=== PATIENT | male | born 1950 | race African-American/Black ===

== ENCOUNTER → 2017-04-03 | Outpatient (CLI) | payer MEDICARE ==
--- NOTE | ~2017-04-03 | CR184 ---
[facility] A Service of [facility] & [facility] RADIOLOGY TEXT RESULTS PATIENT: LUI DIGGS LOCATION: [facility] : 52 UNIT #: [id number] AGE: [address]: EMMA ESPINOZA MD SEX: M ORDER DR: [id number] [facility] [address] [place], [place] [address] [id number] O MR#: [id number] Acc #: [id number] NAME: LUI DIGGS : 1950 SEX: M STUDY DATE/TIME: 04/03/2017 14:21 UNIT: [facility] ROOM: STUDY DESCRIPTION: CR Lumbar Spine Min 4 Views Attending Physician: Emma Espinoza M.D. Referring Physician: Emma Espinoza M.D. Ordering Physician: Emma Espinoza M.D. Primary Care Physician: Emma Espinoza M.D. MEDICAL IMAGING REPORT This report is preliminary unless electronic signature is present EXAM Lumbar spine 5 views 04/03/2017 HISTORY Low back pain for 1 year. No known injury. FINDINGS AP and lateral projections of the lumbar segment show good mineralization of both anterior and posterior elements. They are all anatomically normal without indication of fracture, dislocation, or malignant change of a sclerotic or lytic type. There is no congenital defect noted. The sacroiliac joints are normal. IMPRESSION Normal lumbar spine. Dictated by... Gurpreet Hussein M.D. THIS IS AN ELECTRONICALLY VERIFIED REPORT Gurpreet Hussein M.D. at 04/05/2017 7:46 AM CARLITOS/keturah TD: 04/04/2017 13:41 JOB #: [id number] MEDICAL IMAGING REPORT Page 1 of 1 COPY
== END | disposition home or self-care (01) ==
LOC: CRAD 13:20
DX: M54.5 Low back pain (principal)
CPT/HCPCS: 72110

== ENCOUNTER → 2017-05-14 | Outpatient (CLI) | payer MEDICARE ==
--- NOTE | ~2017-05-14 | CR61 ---
[facility] A Service of [facility] & [facility] RADIOLOGY TEXT RESULTS PATIENT: LUI DIGGS LOCATION: [facility] : 52 UNIT #: [id number] AGE: [address]: EMMA ESPINOZA MD SEX: M ORDER DR: [id number] [facility] [address] [place], [place] [address] [id number] O MR#: [id number] Acc #: [id number] NAME: LUI DIGGS : 1950 SEX: M STUDY DATE/TIME: 05/14/2017 11:41 UNIT: [facility] ROOM: STUDY DESCRIPTION: CR Cervical Spine Min 5 Views Attending Physician: Emma Espinoza M.D. Referring Physician: Emma Espinoza M.D. Ordering Physician: Emma Espinoza M.D. Primary Care Physician: Emma Espinoza M.D. MEDICAL IMAGING REPORT This report is preliminary unless electronic signature is present EXAM Cervical spine 5 views 05/14/2017 HISTORY Neck pain for 2 years. No known injury. Right upper extremity numbness and tingling. FINDINGS Five views of the cervical spine demonstrate no fracture. There is straightening of the cervical spine with loss of the normal lordotic curve. Anterior fusion with surgical plate and screws is seen from C3-C6. There is moderate disc space narrowing at C6-7. Anterior and posterior osteophytes are seen at C6 and C7. There is degenerative change involving articular facets. IMPRESSION Degenerative and postsurgical changes in the cervical spine. No acute abnormality. Dictated by... Gurpreet Hussein M.D. THIS IS AN ELECTRONICALLY VERIFIED REPORT Gurpreet Hussein M.D. at 05/16/2017 9:23 AM KRT/to TD: 05/15/2017 11:41 JOB #: [id number] MEDICAL IMAGING REPORT Page 1 of 1 COPY
== END | disposition home or self-care (01) ==
LOC: CRAD 11:24
DX: G57.12 Meralgia paresthetica, left lower limb (principal); M47.892 Other spondylosis, cervical region; Z98.890 Other specified postprocedural states
CPT/HCPCS: 72050

== ENCOUNTER → 2017-06-14 | Outpatient (CLI) | payer MEDICARE ==
--- NOTE | ~2017-06-14 | MR113 ---
[facility] A Service of [facility] RADIOLOGY TEXT RESULTS PATIENT: LUI DIGGS [facility] : 52 UNIT #: [id number] AGE: [address]: EMMA ESPINOZA MD SEX: M ORDER DR: [id number] [facility] [address] [place], [place] [address] [id number] O MR#: [id number] Acc #: [id number] NAME: LUI DIGGS : 1950 SEX: M STUDY DATE/TIME: 06/14/2017 16:35 UNIT: [facility] ROOM: STUDY DESCRIPTION: MR Lumbar Wo Contrast Attending Physician: Emma Espinoza M.D. Referring Physician: Emma Espinoza M.D. Ordering Physician: Emma Espinoza M.D. Primary Care Physician: Emma Espinoza M.D. MRI CENTER REPORT This report is preliminary unless electronic signature is present. EXAM MRI lumbar spine without contrast INDICATIONS Lower back and bilateral lower extremity pain and numbness for the past year. No previous surgery. PROCEDURE Sagittal and axial T1 T2-weighted imaging of the lumbar spine without contrast. COMPARISON STUDIES Lumbar spine series from 04/03/2017 FINDINGS Lower bodies have normal height and alignment. There is some disc desiccation predominately at L4-L5. Conus terminates at L1 and has normal caliber and signal intensity. No abnormal paravertebral mass or fluid collection. L1-L2: Mild circumferential disc bulge. Mild facet arthrosis. Mild central canal narrowing and mild bilateral neural foraminal narrowing. The L2-L3: Mild circumferential disc bulge. Mild facet arthrosis. Mild central canal narrowing. There is moderate bilateral neural foraminal narrowing. L3-L4: Circumferential disc bulge. Moderate bilateral facet arthrosis and ligamentum flavum hypertrophy. Moderate to moderately severe central canal narrowing. Combination of facet arthrosis and foraminal disc osteophyte results in moderately severe bilateral neural foraminal narrowing. [facility] A Service of [facility] RADIOLOGY TEXT RESULTS PATIENT: LUI DIGGS [facility] : 52 UNIT #: [id number] AGE: [address]: EMMA ESPINOZA MD SEX: M ORDER DR: L4-L5: Circumferential disc bulge with a central annular fissure, measuring approximately 1.3 cm in width. Moderate bilateral facet arthrosis. Moderate to moderately severe central canal narrowing. Moderately severe bilateral neural foraminal narrowing related to foraminal disc osteophytes and facet arthrosis. L5-S1: Mild broad-based posterior disc bulge and mild facet arthrosis. No significant central canal narrowing. Mild bilateral neural foraminal narrowing. IMPRESSION 1. Multilevel degenerative disc disease most significant at L4-L5 and L3-L4 as detailed above. 2. Circumferential disc bulge at L4-L5, with a central annular fissure. 3. Multilevel facet arthrosis as above. Dictated by... Rayshawn Ovalle M.D. THIS IS AN ELECTRONICALLY VERIFIED REPORT Rayshawn Ovalle M.D. at 06/19/2017 8:27 AM YI/keturah TD: 06/18/2017 12:07 JOB #: [id number] MRI CENTER REPORT Page 1 of 1 COPY
== END | disposition home or self-care (01) ==
LOC: CMRI 16:14
DX: R94.131 Abnormal electromyogram [EMG] (principal); M51.36 Other intervertebral disc degeneration, lumbar region; M51.86 Other intervertebral disc disorders, lumbar region; M47.896 Other spondylosis, lumbar region
CPT/HCPCS: 72148